=== PATIENT | female | born 1990 | race African-American/Black ===

== ENCOUNTER 2016-06-07 19:44 | Emergency (ER) | payer OTHER ==
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
[~2016-06-07 19:44] MED LIST: NO MEDICATIONS
== END 2016-06-07 20:34 | disposition home or self-care (01) ==
LOC: SED 19:44
DX: M54.5 Low back pain (principal); V43.62XA Car passenger injured in collision with other type car in traffic accident, initial encounter; Y92.410 Unspecified street and highway as the place of occurrence of the external cause
CPT/HCPCS: 72100; 96372; 99283; J1885